=== PATIENT | male | born 1990 | race Caucasian/White ===

== ENCOUNTER 2024-09-10 23:22 | Emergency (ER) | payer OTHER ==
[~2024-09-10] VITALS: Ht 165.1 cm; Wt 84.3 kg
[2024-09-10 23:30] VITALS: O2SAT 99
[2024-09-11] MEDS: KETOROLAC 30MG/ML VIAL IM STA (01:24)
[2024-09-11] MEDS ORDERED: CYCL5TAB3 MT (02:50)
[2024-09-11] MEDS ORDERED: NAPR-681 PO (02:50)
[2024-09-11 03:18] VITALS: BP 159/99; PULSE 88; RESP 18; TEMP 36.66960; O2SAT 100
== END 2024-09-11 03:19 | disposition home or self-care (01) ==
LOC: ER 23:56
DX: M54.6 Pain in thoracic spine (principal); M79.631 Pain in right forearm; M79.632 Pain in left forearm; R07.89 Other chest pain; V49.40XA Driver injured in collision with unspecified motor vehicles in traffic accident, initial encounter; Y93.89 Activity, other specified; Y92.89 Other specified places as the place of occurrence of the external cause; Y99.8 Other external cause status
CPT/HCPCS: 99284; 71045; 72070; 72100; 96372; J1885